=== PATIENT | female | born 1990 | race Hispanic/Latino ===

== ENCOUNTER → 2021-06-03 12:48 | Outpatient (CLI) | payer OTHER, SELFPAY ==
[2021-06-03 18:28] LABS: Add Manual Diff / Slide Review NO; Basophils Absolute Auto 0 /uL (0-100); Basophils Percent Auto 0.4 % (0-2); Eosinophils Absolute Auto 200 /uL (0-450); Eosinophils Percent Auto 2.2 % (2-4); Hematocrit 37.7 % (36-46); Hemoglobin 12.8 g/dL (12.0-16.0); Lymphocytes Absolute Auto 3300 /uL (1100-4500); Lymphocytes Percent Auto 31.8 % (25-40); Mean Corpuscular HGB Conc 33.9 % (30-36); Mean Corpuscular Hemoglobin 29.5 PG (26-34); Monocytes Absolute Auto 500 /uL (0-900); Neutrophils Absolute Auto 6300 /uL (1500-7000); Neutrophils Percent Auto 60.6 % (50-75); Platelet Count 411 X10^3/uL (150-400); Red Blood Cell Count 4.34 X10^6/uL (4.0-5.2); Red Cell Distribution Width 12.6 % (11.6-14.8); White Blood Cell Count 10.3 X10^3/uL (4.5-11.0)
[2021-06-03 19:06] LABS: TSH w/ Reflex to FT4 1.81 uIU/mL (0.47-4.68)
== END ==
PROVIDERS: PCP Physician Assistant; Visit Provider Physician Assistant
DX: N92.1 Excessive and frequent menstruation with irregular cycle (principal); R68.89 Other general symptoms and signs
CPT/HCPCS: 84443; 85025

== ENCOUNTER → 2021-06-09 14:16 | Outpatient (CLI) | payer OTHER, SELFPAY ==
--- NOTE | 2021-06-09 14:17 | DI.US.S_ITS ---
PROCEDURE: US PELVIC COMPLETE INDICATIONS: frequent painful menstruation TECHNIQUE: Real-time scanning was performed of the pelvic organs, with image documentation. Additional endovaginal scanning was necessary due to incomplete visualization of the adnexal and endometrial structures by transabdominal scanning. COMPARISON: None. FINDINGS: Uterus: Uterus is anteverted and normal in size at 7.6 x 4.5 x 3.9 cm. The myometrium is homogeneous. The endometrium measures 4.3 mm combined thickness. No endometrial mass or fluid is seen. No discrete uterine fibroids. Trace amount of anechoic fluid is seen within endocervical canal. Small nabothian cysts are also noted. Ovaries: The right ovary measures 3.4 x 2.6 x 1.7 cm. The left ovary measures 3.7 x 3.7 x 3.3 cm, The ovaries have a normal sonographic appearance. Less than 12 follicles can be seen in each ovary. Anechoic cyst is seen in right ovary measures 2.3 x 1.1 x 0.6 cm in size. Anechoic cyst is also seen in left ovary measures 3.9 x 3 x 2.7 cm. No adnexal masses are seen. Normal arterial and venous flow is seen in bilateral ovaries on color Doppler images. Other: No pathologic free abdominal or pelvic fluid. IMPRESSION: 1. No gross abnormality is seen in uterus and endometrium. 2. Bilateral ovarian cysts as above. No solid appearing ovarian lesion. No evidence of ovarian torsion. We strive to produce accurate, complete, and clear reports of imaging services. To assist us in improving patient care, this report was composed using standard report templates and voice recognition software. Therefore, it may contain abnormal punctuation, insertions and/or omissions. Occasional wrong-word or sound-alike substitutions may occur. Though we review the report and make efforts to correct it, we do recommend that the report be read carefully in proper context to recognize any text inaccuracies. Dictated by: Edis Reddy M.D. on 06/09/2021 at 17:04 Approved by: Edis Reddy M.D. on 06/09/2021 at 17:09
== END ==
PROVIDERS: PCP Physician Assistant; Referring Provider Physician Assistant; Visit Provider Physician Assistant
DX: N92.1 Excessive and frequent menstruation with irregular cycle (principal); R87.619 Unspecified abnormal cytological findings in specimens from cervix uteri; N83.202 Unspecified ovarian cyst, left side; N83.201 Unspecified ovarian cyst, right side
CPT/HCPCS: 76830; 76856

== ENCOUNTER → 2021-08-14 08:03 | Outpatient (CLI) | payer OTHER, SELFPAY ==
[2021-08-14 19:40] LABS: Glucose 98 mg/dL (70-100)
[2021-08-14 19:57] LABS: Follicle Stimulating Hormone 5.43 mIU/mL
[2021-08-14 20:00] LABS: Free T3, Triiodothyronine Free 3.73 pg/mL (2.77-5.27)
[2021-08-14 20:14] LABS: Thyroid Stimulating Hormone 2.72 uIU/mL (0.47-4.68)
[2021-08-25 02:53] LABS: Testosterone Free 0.53 ng/dL (0.10-0.85); Testosterone Total 26.7 ng/dL (10.0-55.0)
== END ==
PROVIDERS: PCP Physician Assistant; Visit Provider Obstetrics & Gynecology
DX: N97.0 Female infertility associated with anovulation (principal)
CPT/HCPCS: 82947; 83001; 83002; 83525; 84402; 84403; 84439; 84443; 84481

== ENCOUNTER → 2022-01-01 09:24 | Outpatient (CLI) | payer OTHER, SELFPAY ==
[2022-01-01 19:50] LABS: HCG Quantitative /Beta subunit 7309 mIU/mL
== END ==
PROVIDERS: PCP Physician Assistant; Visit Provider Physician Assistant Medical
DX: O20.9 Hemorrhage in early pregnancy, unspecified (principal); Z3A.01 Less than 8 weeks gestation of pregnancy
CPT/HCPCS: 84702; 87086

== ENCOUNTER → 2022-01-06 08:40 | Outpatient (CLI) | payer OTHER, SELFPAY ==
[2022-01-06 20:20] LABS: HCG Quantitative /Beta subunit 12180 mIU/mL
== END ==
PROVIDERS: PCP Physician Assistant; Visit Provider Physician Assistant
DX: O20.9 Hemorrhage in early pregnancy, unspecified (principal); Z3A.01 Less than 8 weeks gestation of pregnancy
CPT/HCPCS: 84702

== ENCOUNTER → 2024-05-30 14:54 | Outpatient (CLI) | payer OTHER, SELFPAY | PROVIDERS: PCP Physician Assistant; Visit Provider Physician Assistant | DX: R30.0 Dysuria (principal) | CPT/HCPCS: 87086 ==